=== PATIENT | female | born 1975 | race Caucasian/White ===

== ENCOUNTER → 2025-02-26 | Outpatient (CLI) | payer BC, SELFPAY ==
[2025-02-26 13:37] LABS: Glucose Estimated Average 105 mg/dL (80-131); Hemoglobin A1C 5.3 % Hgb (4.8-6.0)
[2025-02-26 13:45] LABS: T4 (Thyroxine) 11.5 mcg/dL (4.5-10.9)
[2025-02-26 13:55] LABS: Alanine Aminotransferase 50 U/L (10-49); Albumin, Serum 4.4 gm/dL (3.5-5.0); Albumin/Globulin Ratio 1.8 (1.2-2.2); Alkaline Phosphatase 61 U/L (46-116); Anion Gap 10 (7-16); Aspartate Amino Transferase 29 U/L (0-34); BUN/Creatinine Ratio 14 Ratio (12-20); Bilirubin,Total 0.4 mg/dL (0.3-1.2); Blood Urea Nitrogen 10 mg/dL (9-23); Calcium 9.1 mg/dL (8.3-10.6); Calcium (Corrected) 9.1 mg/dL (8.5-10.1); Carbon Dioxide 24.8 mMol/L (20.0-31.0); Chloride 109 mMol/L (98-107); Cholesterol 181 mg/dL (132-200); Creatinine (Component) 0.7 mg/dL (0.6-1.3); Globulin 2.4 gm/dL (2.3-3.5); Glucose 97 mg/dL (74-106); HDL Cholesterol 61 mg/dL (40-60); LDL Cholesterol,Calculated 104 mg/dL (0-130); Osmolality,Calculated 285 (275-295); Potassium 3.8 mMol/L (3.4-5.1); Sodium 144 mMol/L (136-145); Thyroid Stimulating Hormone 1.85 uIU/mL (0.55-4.78); Total Protein 6.8 gm/dL (5.7-8.2); Triglycerides 81 mg/dL (30-150); eGFR > 60 See Note
[2025-03-04 06:27] LABS: Cortisol,total,LC/MS/MS* 22.5 mcg/dL; DHEA Sulfate* 89 mcg/dL (19-231)
== END | disposition home or self-care (01) ==
LOC: COPL 12:30
PROVIDERS: PCP Family Medicine; Referring Provider Family Medicine; Visit Provider Family Medicine
DX: E66.9 Obesity, unspecified (principal); N92.0 Excessive and frequent menstruation with regular cycle
CPT/HCPCS: 36415; 80053; 80061; 82533; 82627; 83036; 84436; 84443

== ENCOUNTER → 2025-02-26 | Outpatient (CLI) | payer BC, SELFPAY ==
--- NOTE | 2025-02-26 14:18 | XR_ITS ---
Examination:Left hip AP, lateral, AP pelvis 3 views Technique: Hip AP lateral, AP pelvis, 3 views Exam date and time:February 26, 2025 1424 hours INDICATIONS: Left hip pain beginning 3 years ago. FINDINGS: Advanced left hip osteoarthritis Moderate narrowing right hip joint No hip or pelvic fracture Impression: Advanced left hip osteoarthritis.
--- NOTE | 2025-02-26 14:30 | XR_ITS ---
Examination: Pelvic ultrasound, transabdominal, complete Technique: Transabdominal ultrasound of the pelvis performed using grayscale imaging Date and time of exam: February at 1453 hours INDICATIONS: Irregular heavy menses one year FINDINGS: Uterus 10.2 cm endometrial stripe 13 mm Uterine mass 29 x 22 x 26 mm Endometrial stripe 13 mm Right ovary 3.3 cm arterial flow Left ovary obscured by bowel gas IMPRESSION: Recommend transvaginal pelvic sonography follow-up to further assess uterine mass 29 x 22 x 26 mm
== END | disposition home or self-care (01) ==
LOC: CDIM 14:10
PROVIDERS: PCP Family Medicine; Referring Provider Family Medicine; Visit Provider Family Medicine
DX: M16.12 Unilateral primary osteoarthritis, left hip (principal)
CPT/HCPCS: 73502; 76856

== ENCOUNTER → 2025-03-23 | Outpatient (CLI) | payer BC, SELFPAY ==
--- NOTE | 2025-03-23 14:30 | XR_ITS ---
Examination: Transvaginal ultrasound of the pelvis, complete Technique: Transvaginal sonographic images pelvis performed using jay scale imaging Exam date and time: March 23, 2025 1449 hours INDICATIONS: Irregular menses one year FINDINGS: Uterus 11.0 cm endometrial stripe 13 mm Uterine fundal areas of fibroid degeneration 2.2 x 1.9 cm, 3.3 x 3.0 cm Right ovary obscured by bowel gas Left ovary 2.9 cm. Arterial flow IMPRESSION: Uterine areas of fibroid degeneration as above, recommend 6 month follow-up transvaginal pelvic sonography
== END | disposition home or self-care (01) ==
PROVIDERS: PCP Family Medicine; Referring Provider Family Medicine; Visit Provider Family Medicine
DX: D25.9 Leiomyoma of uterus, unspecified (principal)
CPT/HCPCS: 76830